=== PATIENT | female | born 1965 | race Caucasian/White ===

== ENCOUNTER 2021-03-04 22:21 | Emergency (ER) | payer OTHER, SELFPAY ==
--- NOTE | ~2021-03-04 | XR_ITS ---
XR hand RT min 3V, XR wrist RT min 3V 03/04/2021 23:04 Indication: Status post fall. Right hand and wrist pain. Procedure: 3 views right hand and 4 views right wrist Comparison: No prior studies for comparison. Findings: Mild polyarticular osteoarthritis. There is an old ulnar styloid fracture. There is a triqu etral fracture, age indeterminate. Correlate for point tenderness. No significant soft tissue abnorma lity. Scaphoid appears to be intact. Impression: 1: Age-indeterminate triquetral fracture. Correlate for point tenderness. Reviewed, dictated and finalized at location A. DINING ROOM ATTENDANT Impression: 1: Age-indeterminate triquetral fracture. Correlate for point tenderness. Impression: 1: Age-indeterminate triquetral fracture. Correlate for point tenderness.
[2021-03-04 22:43] VITALS: BP 155/99; PULSE 56; RESP 20; TEMP 36.1; O2SAT 98
[2021-03-04] MEDS: HYDROcodone/acetaminophen (*CRX) 5-325 MG TABLET 1 TAB PO (23:50)
[2021-03-04] MEDS: ONDANSETRON HCL ODT 4 MG TABLET PO (23:50)
[2021-03-04] MEDS: IBUPROFEN 400 MG TABLET PO (23:51)
[2021-03-04 23:52] VITALS: BP 143/87; PULSE 67; RESP 15; O2SAT 99
--- NOTE | 2021-03-05 00:44 | ED.UPPEXIN ---
HPI - Extremity Injury (Upper) General Chief Complaint: Extremity Injury, Upper Stated Complaint: right wrist injury Time Seen by Provider: 03/04/21 23:13 Source: patient and RN notes reviewed Mode of arrival: ambulatory Limitations: no limitations History of Present Illness HPI narrative: This is a 56 year old female left hand dominant who presents for evaluation of right wrist pain. Patient states she accidentally tripped on a cord and she fell onto her right hand. She denies headache or LOC. She thinks she may have bumped her forehead but she denies taking blood thinners. She denies any other injury. Related Data Allergies Allergy/AdvReac Type Severity Reaction Status Date / Time Penicillins Allergy Mild Unknown Verified 03/04/21 22:52 Review of Systems Review of Systems: All systems reviewed & are unremarkable except as noted in HPI and below PMFSH Past Medical History Medical History (Updated 03/05/21 @ 00:53 by Yancy Green MD) Patient denies medical problems Social History Social History (Updated 03/05/21 @ 00:48 by Yancy Green MD) Smoking packs per day: 1 Smoking cigarettes per day: 20.0 Smoking status: Current every day smoker Exam Const: General: no acute distress and alert Orientation/consciousness: patient oriented x3 HENMT: Head: normocephalic and atraumatic Face and sinus: face symmetric Eyes: Pupils: Equal, round and reactive pupils present EOM: EOMs intact bilaterally Resp: Effort & Inspection: normal respiratory effort Auscultation: clear to auscultation bilaterally Cardio: Rate: regular rate Rhythm: regular rhythm Heart sounds: no murmurs GI: GI Palp: Yes Soft to palpation, No Tenderness to palpation present (GI) and No Guarding due to palpation present (GI) Auscultation: normal bowel sounds Back/Spine/Pelvis: Other: no cervical spine tenderness Neuro: General: patient oriented x3, moves all extremities and CN's II-XI intact bilaterally Extrem: Other: right dorsum wrist with bruising and swelling, no deformity. She has pain with movement of her fingers. 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 She was placed in volar splint by nursing staff. Date: 03/05/21 Time: 00:50 Vital Signs Vital signs: Vital Signs Temperature 97.0 F L 03/04/21 22:43 Pulse Rate 56 L 03/04/21 22:43 Respiratory Rate 20 03/04/21 22:43 Blood Pressure 155/99 H 03/04/21 22:43 Pulse Oximetry 98 03/04/21 22:43 Temperature 97.0 F L 03/04/21 22:43 Pulse Rate 71 03/05/21 01:33 Respiratory Rate 17 03/05/21 01:33 Blood Pressure 133/88 03/05/21 01:33 Pulse Oximetry 100 03/05/21 01:33 Procedures Orthopedic Splinting/Casting Injury #1: Splinting/Casting Date: 03/05/21 Splinting/Casting Time: 01:00 Side: right Upper Extremity Injury Location: wrist Upper Extremity Immobilizer: volar splint Splint: customized in ED OCL: short arm Pre-Procedure Neuro Vascular Exam: normal MDM - Extremity Injury (Upper) Imaging Data Radiologist's impression: ITS Impressions Hand X-Ray 03/04/21 23:06 Impression: 1: Age-indeterminate triquetral fracture. Correlate for point tenderness. Wrist X-Ray 03/04/21 23:06 Impression: 1: Age-indeterminate triquetral fracture. Correlate for point tenderness. Discharge Plan Discharge Clinical Impression: Chip fracture of triquetrum of right wrist Qualifiers: Encounter type: initial encounter Fracture type: closed Qualified Code(s): S62.111A - Displaced fracture of triquetrum [cuneiform] bone, right wrist, initial encounter for closed fracture Patient Disposition: Home, Self-Care Condition: Stable Instructions: Antibiotic Form, Wrist Fractur
[2021-03-05 01:33] VITALS: BP 133/88; PULSE 71; RESP 17; O2SAT 100
== END 2021-03-05 01:35 | disposition home or self-care (01) ==
PROVIDERS: Emergency Provider General Practice
DX: S62.111A Displaced fracture of triquetrum [cuneiform] bone, right wrist, initial encounter for closed fracture (principal); F17.210 Nicotine dependence, cigarettes, uncomplicated; W18.09XA Striking against other object with subsequent fall, initial encounter
CPT/HCPCS: 29125; 73110; 73130; 99284; A4565; A9270